=== PATIENT | female | born 1960 | race African-American/Black ===

== ENCOUNTER 2021-08-31 12:09 | Emergency (ER) | payer MEDICAID ==
[~2021-08-31] VITALS: Ht 170.2 cm; Wt 77.0 kg
[2021-08-31 12:46] VITALS: BP 121/76
== END 2021-08-31 17:36 | disposition left against medical advice (07) ==
LOC: ER 12:09
DX: Z53.21 Procedure and treatment not carried out due to patient leaving prior to being seen by health care provider (principal)